=== PATIENT | female | born 1980 | race Caucasian/White ===

== ENCOUNTER 2016-11-01 08:33 | Emergency (ER) | payer BC ==
[2016-11-01 08:58] VITALS: BP 139/88; PULSE 95; RESP 16; TEMP 98.2; O2SAT 97
--- NOTE | 2016-11-01 09:12 | UCPHY ---
H & P Time Seen by Provider: 11/01/16 09:01 Patient Type: New HPI/ROS: This patient has sinus pressure in the maxillary sinus region worsens when she bends forward and radiates to her teeth. Pain is moderate. She has a little over week of nasal congestion associated with this. She has mild improvement from Tylenol and notes no other exacerbating or alleviating factors. 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 ROS: No high fevers. No confusion. No neck stiffness. She has occasional cough but no shortness of breath or wheeze. 5 point ROS is otherwise negative Past Medical/Surgical History: Otherwise healthy Smoking Status: Never smoked Physical Exam: Physical Exam Vital signs are normal. General: No acute distress HEENT: Nose: Swollen nasal mucosa with purulent appearing discharge in sinus tenderness to percussion left more than right maxillary sinus to percussion. Oropharynx: No erythema or exudates. No dysphonia. Ears: External canals and TMs are clear bilaterally. Eyes: Pupils equal and react to light. Extraocular motions are intact. Neck: Supple with no meningismus. Lungs: Clear to auscultation bilaterally. No respiratory distress. Cardiac: Regular rate and rhythm with no murmur gallop or rub Skin: No rash or pallor. Neuro: Alert . Initial differential diagnosis: Viral URI with sinus congestion versus bacterial sinusitis Constitutional: Initial Vital Signs Temperature (C) 36.8 C 11/01/16 08:53 Heart Rate 95 11/01/16 08:53 Respiratory Rate 16 11/01/16 08:53 Blood Pressure 139/88 H 11/01/16 08:53 O2 Sat (%) 97 11/01/16 08:53 O2 Delivery Mode Room Air Allergies/Adverse Reactions: No Known Allergies Allergy (Unverified 11/01/16 09:08) Home Medications: Medication Instructions Recorded Azithromycin [Zithromax] 250 mg PO DAILY #6 tab 11/01/16 Fluticasone Nasal [Flonase Nasal 2 sprays NASAL DAILY #1 mdi 11/01/16 [place]] MDM/Departure - [facility] ED Course/Re-evaluation: Discussion: Maxillary sinusitis without evidence of complications. The patient appears clinically well. - Depart Disposition: Home, Routine, Self-Care Clinical Impression: Maxillary sinusitis Qualifiers: Chronicity: acute Recurrence: non-recurrent Qualifier Code: (J01.00) Acute maxillary sinusitis, unspecified Instructions: Rhinosinusitis (ED) Additional Instructions: Diagnosis: Maxillary sinusitis Plan: Humidifier Flonase steroid nasal spray Zithromax Best to avoid guaifenesin or other [id number] at this time Return for any significant worsening despite the treatment plan Prescriptions: Fluticasone Nasal [Flonase Nasal [place]] 2 sprays NASAL DAILY #1 mdi Azithromycin [Zithromax] 250 mg PO DAILY #6 tab Referrals: OUT OF STATE,. [Primary Care Provider] - As per Instructions - PQRS PQRS Measurement: NA
== END 2016-11-01 09:21 | disposition home or self-care (01) ==
LOC: CED 08:33
DX: J01.00 Acute maxillary sinusitis, unspecified (principal)
CPT/HCPCS: 99203-PO; G0463-PO